=== PATIENT | male | born 1960 | race Caucasian/White ===

== ENCOUNTER → 2021-03-08 | Outpatient (CLI) | payer MEDICARE ==
[~2021-03-08] MED LIST: BENTYL 20MG TAB20 MG PO; LODINE CAP 300300 MG PO; ZOFRAN ODT 4 MG4 MG PO
[2021-03-08 10:58] LABS: HEMOGLOBIN 17.2 gm/dl (14.0-17.5); RED BLOOD COUNT 5.57 M/UL (4.20-5.50); WHITE BLOOD COUNT 7.6 K/UL (4.5-11.0)
[2021-03-08 13:06] LABS: BUN/CREATININE RATIO 16 (0-10)
[2021-03-09 09:14] LABS: VITAMIN D, 25-HYDROXY 29.6 ng/mL (30.0-100.0)
[2021-03-11 00:09] LABS: TESTOSTERONE, SERUM 392 ng/dL (264-916)
== END ==
LOC: LAB 10:09
PROVIDERS: Family Medicine
DX: F41.8 Other specified anxiety disorders (principal); E11.40 Type 2 diabetes mellitus with diabetic neuropathy, unspecified; E29.1 Testicular hypofunction; I10 Essential (primary) hypertension; E55.9 Vitamin D deficiency, unspecified
CPT/HCPCS: 36415; 80053; 80061; 84402; 84403; 84439; 84443; 84481; 85025